=== PATIENT | female | born 1980 | race Caucasian/White ===

== ENCOUNTER → 2018-04-04 | Outpatient (CLI) | payer OTHER ==
--- NOTE | 2018-04-05 13:50 | US ---
EXAM DESCRIPTION: Breast,Right: Ultrasound CLINICAL HISTORY: 37 yearsFemaleRIGHT BREAST LUMP. Lateral palpable. Also right breast is frequently tender area upper outer quadrant. COMPARISON: Bilateral diagnostic digital breast tomosynthesis on the same visit. TECHNIQUE: Transcutaneous scanning of the right breast utilizing hanks-scale and Doppler modes. Scanning performed by the activities attendant and Dr. Pratt. FINDINGS: Scanning in the right breast 9:00 to 11:00 position 8 to 9 cm from the nipple, in the region where skin marker is located. Diffuse fibroglandular tissues. No dominant solid mass or distinct cyst. No parenchymal edema or large calcifications. No overlying skin changes. Normal vascularity. IMPRESSION: 1. Bi-Rads Category 2: Benign. 2. Please refer to bilateral diagnostic digital breast tomosynthesis examination and report on this visit. The FINDINGS and the FOLLOW-UP plan were reviewed in person with the patient after the examination. Written communication explaining the IMPRESSION and FOLLOW-UP will be mailed to the patient and referring care provider. Electronically signed by: Fred Pratt MD 04/05/2018 1:47 PM [facility]
--- NOTE | 2018-04-05 14:03 | MAM ---
EXAM DESCRIPTION: 3D Diagnostic, Bilateral: Digital Mammography CLINICAL HISTORY: 37 yearsFemaleBREAST LUMP . Palpable mass and soreness upper outer quadrant posterior right breast. Confirmed by CBE by nurse. Patient also feels lump above the left nipple. Not confirmed. No personal or family history of breast cancer. Childbirth. Premenopausal. No HRT. Lifetime risk of developing breast cancer (Tyrer-Cuzick model) percentage is 7.4. COMPARISON: Baseline study at this facility. No prior reports available.. TECHNIQUE: Bilateral CC, LM, and MLO projection full-field images, digital mammographic tomosynthesis technique. Bilateral 2-D digital full-field MLO images. CAD not available. FINDINGS: The breast parenchymal density pattern is: Extremely dense breast tissue, which lowers the sensitivity of mammography. No skin thickening or nipple retraction skin marker indicating palpable mass upper outer quadrant posterior third right breast at the 10:00 position. Skin marker indicating palpable mass by patient superior to the retroareolar left breast at 12:00 position. Scattered microcalcifications are solitary in the anterior and posterior left breast. No new focal, stellate mass or density, focal asymmetry , and no suspicious microcalcifications bilaterally. Ultrasound right breast: Scanning in the right breast 9:00 to 11:00 position 8 to 9 cm from the nipple, in the region where skin marker is located. Diffuse fibroglandular tissues. No dominant solid mass or distinct cyst. No parenchymal edema or large calcifications. No overlying skin changes. Normal vascularity. IMPRESSION: Benign exam. BIRAD CATEGORY: 2 BENIGN FINDINGS. RECOMMENDATIONS: FOLLOW UP: Routine digital bilateral mammographic screening, one year interval from March 2018. Written communication explaining the IMPRESSION and follow-up, will be mailed to the patient and referring health care provider. According to the [employer], yearly mammograms are recommended starting at age 40 and continuing as long as a woman is in good health. Any breast change noted on a breast self-exam should be reported promptly to the patient's healthcare provider. Breast MRI is recommended for women with an approximately 20-25% or greater lifetime risk of breast cancer, including women with a strong family history of breast or ovarian cancer and women who have been treated for Hodgkin's disease. A negative mammographic report should not delay tissue diagnosis in patients with significant clinical history or physical findings. Extremely dense breast tissue limits the sensitivity of digital mammography. Electronically signed by: Fred Pratt MD 04/05/2018 1:59 PM [facility] [employer] [facility]
== END ==
LOC: MAMMO 14:00
PROVIDERS: ATTEND Family Medicine
DX: N63.10 Unspecified lump in the right breast, unspecified quadrant (principal)
CPT/HCPCS: 76641; 77066; G0279